=== PATIENT | male | born 1960 | race Caucasian/White ===

== ENCOUNTER 2017-06-28 07:21 | Day surgery (SDC) | payer MEDICAID ==
[~2017-06-28 07:21] MED LIST: ACETAMINOPHEN 1,000 MG/100 ML BTL IV ONE
[2017-06-28] MEDS ORDERED: LIDOCAINE 2% MDV (20MG/ML) 20ML VIAL IV ONE (07:22)
[2017-06-28] MEDS ORDERED: HYDROMORPHONE HCL 2 MG/ML VIAL IV ONE (07:22)
[2017-06-28] MEDS ORDERED: SEVOFLURANE 250 ML INH ONE (07:22)
[2017-06-28] MEDS ORDERED: BUPIVACAINE 0.25% W/EPI MPF 30ML VIAL IVP ONE (07:22)
[2017-06-28] MEDS ORDERED: PROPOFOL 10 MG/ML VIAL IV ONE (07:22)
--- NOTE | 2017-06-29 10:21 | Operative Note ---
DATE OF SURGERY: 06/28/2017 Surgeon: Zane Zamudio DO PREOPERATIVE DIAGNOSIS: Torn medial meniscus of the left knee. POSTOPERATIVE DIAGNOSES: 1. Torn medial meniscus of the left knee. 2. Synovitis of the left knee. (medial mid patella plica). 3. Chondromalacia of the lateral femoral condyle, left knee. OPERATION: 1. Arthroscopic partial medial meniscectomy, left knee. 2. Arthroscopic resection of medial mid patella plica, left knee. DESCRIPTION OF PROCEDURE: This 56-year-old male who was taken to the operating room and placed in the supine position on the operating room table. A general anesthetic was administered and the left lower extremity was elevated. It was exsanguinated and the tourniquet inflated to 300 mmHg. Arthroscopic knee ford applied. The left knee prepped with Hibiclens and draped in the usual sterile fashion. An inferolateral portal was established for the 4 mm arthroscope. Initial evaluation of the joint demonstrated normal appearance of the suprapatellar pouch. No articular cartilage defects were present. Probing through an inferomedial portal did not reveal any defects. The medial compartment was subsequently identified and the articular cartilage in the medial compartment was normal. However, the patient had a complex tear of the posterior horn of the medial meniscus with a relatively large flap on the undersurface which was tucked underneath the meniscus. In addition, the horizontal cleavage tear was present within about 2 mm of the meniscal synovial junction. We resected back to the apex of the tear utilizing the basket forceps and then tapered in each direction and further smoothed and contoured the meniscus utilizing the rotating shaver. We re-probed this and confirmed that the meniscus was stable. We then directed our attention to the intracondylar notch. ACL was seen to be normal. The lateral compartment was entered and very minimal chondromalacia in an area of about a centimeter of greatest dimension of the weightbearing surface of the lateral femoral condyle was identified. No loose fragments of cartilage were present and it was not further disturbed. The lateral meniscus appeared normal. The joint was copiously irrigated and suctioned. The instruments were removed. The portals infiltrated with 0.25% Marcaine with epinephrine. Sterile dressings applied. Tourniquet and knee ford released. The patient was taken to the recovery room in satisfactory condition. GROSS PATHOLOGY: This patient demonstrated a complex tear of the posterior horn of the medial meniscus. Medial mid patella plica was present which was resected with a rotating shaver. In addition, there was grade 2 chondromalacia, a small area of 1 cm with minimal damage on the lateral femoral condyle. It was not further disturbed. CC: Madan SANDY
== END 2017-06-28 10:40 | disposition home or self-care (01) ==
LOC: SUR 07:21
PROVIDERS: ATTEND Orthopaedic Surgery
DX: M23.222 Derangement of posterior horn of medial meniscus due to old tear or injury, left knee (principal); I10 Essential (primary) hypertension; M65.862 Other synovitis and tenosynovitis, left lower leg; M94.262 Chondromalacia, left knee
CPT/HCPCS: 93005; 93010; 29881; 01400; J1170

== ENCOUNTER 2019-04-29 06:30 | Emergency (ER) | payer SELFPAY ==
[2019-04-29] MEDS ORDERED: ASPIRIN 81 MG CHEWABLE TABLET PO ONE (07:03)
--- NOTE | 2019-04-29 07:09 | Emergency Department Record ---
History of Present Illness - General Chief Complaint: Back Pain/Injury Stated Complaint: PAIN IN BACK Time Seen by Provider: 04/29/19 06:54 Source: Patient Mode of Arrival: Ambulatory Limitations: No limitations - History of Present Illness Initial Comments: Pt to the ED with 2 weeks or upper right back pain. Pt states 6 weeks ago he fell backwards from a rocking chair to the floor hitting his back. He had pain at the time but this pain is over the past two weeks without additional trauma. He has no anterior chest pain, no JETT or pain with respiration, no cough. The pain goes into the right neck. He is a non smoker, no drug use, no DM or elev ated cholesterol. He takes Lisinopril for HTN. No hx of cardiac events or stress testing. He has no hx DVT/PE but does drive long distances [place]. No hx cancer or hypercoag state. No recent illness. Has been seen by his chiropractor for this pain and has had manipulation with some relief. Taking Motrin and Tylenol for pains with minimal relief. Onset/Timin -: Week(s) Similar Symptoms Previously: No Place: Home Severity: Moderate Severity scale (1-10): 9 Quality: Crushing Consistency: Getting worse Improves With: Medication, Other Worsens With: Supine Context: Fall Associated Symptoms: Chest pain Treatments Prior to Arrival: Cold therapy, NSAIDS - Related Data Home Medications Medication Instructions Recorded Confirmed Last Taken Lisinopril [Zestril] 5 mg PO DAILY 04/29/19 04/29/19 Unknown Allergies Allergy/AdvReac Type Severity Reaction Status Date / Time No Known Drug Allergies Allergy Verified 06/25/17 09:24 Travel Screening - Travel/Exposure Within Last 30 Days Have you traveled within the last 30 days?: No - Travel/Exposure Within Last Year Have you traveled outside the [place] in the last year?: No - Additonal Travel Details Have you been exposed to anyone with a communicable illness?: No - Travel Symptoms Symptom Screening: None Review of Systems Constitutional: Denies: Chills, Fever, Weakness Eyes: Denies: Eye pain, Photophobia ENT: Denies: Congestion, Throat pain Respiratory: Denies: Cough, Dyspnea, Wheezes Cardiovascular: Denies: Chest pain, Dyspnea on exertion, Palpitations, Syncope Endocrine: Denies: Fatigue, Polyuria Gastrointestinal: Denies: Abdominal pain, Diarrhea, Nausea, Vomiting Genitourinary: Denies: Dysuria Musculoskeletal: Reports: As per HPI, Back pain Skin: Denies: Bruising, Rash Neurological: Denies: Confusion, Headache, Numbness, Tingling Psychiatric: Denies: Anxiety Hematological/Lymphatic: Denies: Anemia, Blood Clots, Easy bleeding Past Medical History - SOCIAL HISTORY Smoking Status: Never smoker Alcohol Use: Occasional Drug Use: Occasional Drug Use Detail:: Marijuana - RESPIRATORY Hx Respiratory Disorders: No - CARDIOVASCULAR Hx Cardio Disorders: Yes Hx Hypertension: Yes - NEURO Hx Neuro Disorders: No - GI Hx GI Disorders: No - Hx Genitourinary Disorders: No - ENDOCRINE Hx Endocrine Disorders: No - MUSCULOSKELETAL Hx Musculoskeletal Disorders: Yes Comment:: rotator cuff; left; - PSYCH Hx Psych Problems: Yes Hx Depression: Yes - HEMATOLOGY/ONCOLOGY Hx Hematology/Oncology Disorders: No Family Medical History Any Significant Family History?: No Hx Anxiety: Brother/Sister Hx Cancer: Mother Hx Depression: Mother Physical Exam - General General Appearance: Alert, Oriented x3, Cooperative, No acute distress - Head Head exam: Atraumatic, Normocephalic - Eye Eye exam: Normal appearance, PERRL - ENT ENT exam: Normal exam, Mucous membranes moist, Normal external ear exam, Normal orophraynx, TM's normal bilaterally - Neck Neck exam: Normal inspection, Full ROM. negative: Lymphadenopathy, Tenderness - Respiratory Respiratory exam: Normal lung sounds bilaterally, Chest wall tenderness, Other (right upper thoracic area T3-5 right with acute tiisue texture changes. ). negative: Respiratory distress, Rhonchi, Wheezes - Cardiovascular Cardiovascular Exam: Regular rate, Normal rhythm, Normal heart sounds. negative: Diastolic murmur, Systolic murmur, Tachycardia Peripheral Pulses: 2+: Radial (R), Radial (L) - GI/Abdominal GI/Abdominal exam: Soft, Normal bowel sounds. negative: Distended, Tenderness - Extremities Extremities exam: Normal inspection, Full ROM. negative: Calf tenderness, Normal capillary refill, Pedal edema - Back Back exam: Reports: Full ROM, Paraspinal tenderness, Tenderness. Denies: Vertebral tenderness (Tender T 3-5 on right with acute Tissue tecture change. No skin lesions. ) - Neurological Neurological exam: Alert, Normal gait, Oriented X3 - Psychiatric Psychiatric exam: Normal affect, Normal mood - Skin Skin exam: Normal color. negative: Petechiae, Rash, Urticaria, Vesicles Course Vital Signs 04/29/19 06:37 Temperature 97.7 F Pulse Rate [ 75 Pulse Ox Probe] Respiratory 20 Rate Blood Pressure 200/121 [Left Arm] Pulse Ox 99 - Reevaluation(s) Reevaluation #1: 04/29/19 07:13 Seen on arrival with EKG non acute, unchanged for prior. IV and ASA given. Labs ordered. Discussed interval Trop testing with pt. Agree with plan. Reevaluation #2: 04/29/19 07:55 Pt remains comfortable. Trop elevated. Discussed need for transfer for Cardiology evaluation. NTG given SL. Lovenox 100mg SQ. Call placed to Cardiology. 04/29/19 07:58 Reevaluation #3: 04/29/19 08:40 Repeat EKG done. Pain minimal at 2 of 10. NTG x 2 given. Accepted to [facility]. Await bed assignment. Procedures - EKG Initial Date: 04/29/19 Time: 07:00 EKG: No Acute Changes Medical Decision Making - Management Options MDM Management: Additional Work-up Planned (e.g. ADM/Transfer/OP Study) - Data Complexity MDM Data: Labs Ordered and/or Reviewed, X-Ray Ordered and/or Reviewed, EKG Ordered and/or Reviewed, Independent Visualization of Image, Tracing, or Specimen, Discussion of Test Results With Performing Physician, Decision to Obtain Old Record - Lab Data Result diagrams: 04/29/19 07:00 04/29/19 07:00 - EKG Data -: EKG Interpreted by Me EKG: No Acute Changes - Radiology Data Radiology results: Image reviewed -: Radiology Exam Interpreted by Myself Chest Xray - non acute. - Medical Decision Making Pt with back pain and Trop elevation. ASA and Lovenox given. EKG unchanged. Plan is for transfer to [facility]. Called [facility] Call and discussed with Dr. Meredith Caldwell for transfer. Critical Care Time Critical Care Time: Yes (cardiac with Lovenox and transfer) Total Critical Care Time: 40 Critical Care Time: Multiple rechecks and monitoring. Repeat EKG, transfer call, meds, and family discussions. Disposition Disposition: Transfer Clinical Impression: Myocardial infarction Qualifiers: Myocardial infarction type: non-ST elevation myocardial infarction Qualified Code(s): I21.4 - Non-ST elevation (NSTEMI) myocardial infarction Disposition: Acute Care Hospital Transfer Transfer To: [facility] Reason For Transfer: Cardiology evaulation and care Accepting Physician: Dr. Malloy Time Discussed w/Accepting Physician: 08:04 Condition: (3) Guarded Forms: Patient Portal Access Time of Disposition: 08:40 Quality - Quality Measures Quality Measures: N/A - Blood Pressure Screening Does Patient Have Any of the Following: No, Active Dx of HTN Blood Pressure Classification: Hypertensive Reading Systolic Measurement: 174 Diastolic Measurement: 114 Screening for High Blood Pressure: Patient Exclusion, Hx of HTN [[id number]]
[2019-04-29 07:11] LABS: ABSOLUTE NEUTROPHIL COUNT 2.79; BASO % 0.4 % (0-6); EOS % 1.5 % (0-6); HEMOGLOBIN 15.2 gm/dl (14.0-18.0); LYMPH % 35.6 % (16-45); MEAN CELL VOLUME 86.7 fl (81-97); MEAN CORPUSCULAR HEMOGLOBIN 29.3 pg (27-33); MEAN CORPUSCULAR HGB CONC 33.8 g/dl (32-36); MEAN PLATELET VOLUME 9.7 fl (7.4-10.4); MONO % 8.5 % (0-9); PLATELET COUNT 314 K/uL (130-400); RED BLOOD COUNT 5.19 M/uL (4.40-5.70); RED CELL DISTRIBUTION WIDTH 13.3 % (11.5-14.5); WHITE BLOOD COUNT W/O DIFF 5.2 K/uL (4.2-12.2)
[2019-04-29 07:27] LABS: BLOOD UREA NITROGEN 15 mg/dL (6-20); CREATININE 0.9 mg/dL (0.7-1.2); EST GLOMERULAR FILTRATION RATE > 60 mL/min
[2019-04-29 07:28] LABS: TOTAL PROTEIN 7.7 g/dL (6.6-8.7)
[2019-04-29 07:30] LABS: GLUCOSE,RANDOM 116 mg/dL (74-109)
[2019-04-29 07:33] LABS: ALB/GLOB RATIO 1.3 (1.1-1.8); ALBUMIN 4.4 g/dL (4.0-5.0); ALKALINE PHOSPHATASE 78 U/L (40-129); ALT/SGPT 33 U/L (<41); AST/SGOT 28 U/L (10.0-50.0)
[2019-04-29] MEDS ORDERED: NITROGLYCERIN 0.4MG SL TABLET #25 BTL SL ONE ×2 (07:57→08:22)
[2019-04-29] MEDS ORDERED: ENOXAPARIN 100 MG/ML SYR SQ ONE (07:58)
--- NOTE | 2019-04-30 19:43 | RADIOLOGY REPORT ---
EXAM: CHEST 2 VIEWS HISTORY: PATIENT HAS INCREASING CHEST PAIN TO THE BACK. TECHNIQUE: Two views of the chest are provided without comparison examinations. FINDINGS: The cardiomediastinal silhouette is within normal limits for size and contour. Chasity appear unremarkable. There is no radiographic evidence of a focal infiltrate, pleural effusion, or pneumothorax. IMPRESSION: NO RADIOGRAPHIC EVIDENCE OF AN ACUTE INTRATHORACIC PROCESS. JOB NUMBER: [id number] [facility]
== END 2019-04-29 09:03 | disposition short-term general hospital (02) ==
LOC: ER 06:30
DX: I21.4 Non-ST elevation (NSTEMI) myocardial infarction (principal); M54.6 Pain in thoracic spine; I10 Essential (primary) hypertension
CPT/HCPCS: 71046; 80053; 84484; 85025; 85379; 93005; 93010; 96372; 99291; J1650